=== PATIENT | female | born 1945 | race Hispanic/Latino ===

== ENCOUNTER 2020-04-05 17:53 | Emergency (ER) | payer SELFPAY ==
--- NOTE | 2020-04-05 18:47 | Emergency Department Report ---
HPI - General Chief Complaint: Fall Time Seen by Provider: 04/05/20 18:25 - HPI HPI: This is a 74-year-old female who presents to the emergency department, via EMS from home, after having a fall just prior to presentation. The patient had a recent multilevel lumbar fusion surgery done at [facility] at the end of February. Since that time the patient has been walking with a walker. She says that she was getting something to drink and as she tilted her head back to drink she started falling backwards. She thinks that she fell first onto her buttocks but then continued and fell onto her back. Unknown if she hit her head but denies any loss of consciousness. Since the fall the patient has been having left hip pain and increased pain to the low back where she had a recent spinal fusion surgery. Patient also has a history of a previous thyroidectomy. She also previously was diagnosed with hypertension but says that she no longer needed medication after weight loss. The patient took her oral Dilaudid at home around 4:30 PM for her back pain. Currently it is 7 out of 10 in intensity. She does have some history of neuropathy since the surgery but there has been no change in the neuropathy or any numbness or weakness since the fall. 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 "tremors". basal cell carcinoma in nares - Surgical History Past Surgical History?: Yes Additional Surgical History: dave hip sx. multiple lumbar sx. left shoulder replacement - Social History Smoking Status: Never Smoker Substance Use Type: Prescribed ED Review of Systems ROS: Stated complaint: FALL INJURY/LOWER BACK PAIN Other details as noted in HPI Comment: All other systems reviewed and negative Constitutional: denies: chills, fever Eyes: denies: eye pain, vision change ENT: denies: ear pain, throat pain Respiratory: denies: cough, shortness of breath Cardiovascular: denies: chest pain, palpitations Gastrointestinal: denies: abdominal pain, vomiting Genitourinary: denies: dysuria, discharge Musculoskeletal: back pain, arthralgia. denies: joint swelling Skin: denies: rash, lesions Neurological: denies: headache, weakness Physical Exam - Physical Exam Vital Signs: Vital Signs 04/05/20 04/05/20 04/05/20 17:59 18:14 18:15 Temperature 98.7 F Pulse Rate 51 L 49 L Respiratory 14 14 Rate Blood Pressure 131/54 O2 Sat by Pulse 100 95 95 Oximetry 04/05/20 04/05/20 18:30 18:35 Temperature Pulse Rate 57 L Respiratory 16 16 Rate Blood Pressure 131/54 O2 Sat by Pulse 96 96 Oximetry Physical Exam: GENERAL: The patient is well-developed well-nourished. HENT: Normocephalic. Atraumatic. Patient has moist mucous membranes. EYES: Extraocular motions are intact. NECK: Supple. Trachea is midline. There is both midline and bilateral paraspinal tenderness to palpation. CHEST/LUNGS: Clear to auscultation. There is no respiratory distress noted. HEART/CARDIOVASCULAR: Regular. There is no tachycardia. There is no murmur. ABDOMEN: Abdomen is soft, nontender. Patient has normal bowel sounds. SKIN: Skin is warm and dry. NEURO: The patient is awake, alert, and oriented. The patient is cooperative. Normal speech. MUSCULOSKELETAL: There is tenderness to palpation to the left hip but no obvious deformity. No laxity with compression of the pelvis. There is no limitation range of motion. BACK: There is both midline and bilateral paraspinal lumbar tenderness to palpation. ED Course Vital Signs 04/05/20 04/05/20 04/05/20 17:59 18:14 18:15 Temperature 98.7 F Pulse Rate 51 L 49 L Respiratory 14 14 Rate Blood Pressure 131/54 O2 Sat by Pulse 100 95 95 Oximetry 04/05/20 04/05/20 18:30 18:35 Temperature Pulse Rate 57 L Respiratory 16 16 Rate Blood Pressure 131/54 O2 Sat by Pulse 96 96 Oximetry ED Medical Decision Making - Radiology Data Radiology results: report reviewed LEFT HIP RADIOGRAPH, 3 VIEWS INDICATION / CLINICAL INFORMATION: fall, hip pain COMPARISON: None available. FINDINGS: BONES / JOINT(S): No acute displaced fracture or subluxation. Bilateral hip prostheses in normal anatomic alignment. No evidence of hardware loosening or failure. Postsurgical change in the visualized lower lumbar spine. SOFT TISSUES: No significant abnormality. ADDITIONAL FINDINGS: Multiple surgical clips in the pelvis. Cervical spine 5 views Indication: fall, neck pain Findings: There is no fracture, subluxation, or other acute radiographic abnormality of the cervical spine. There is multilevel discogenic degenerative change from C3 to T1. Prevertebral soft tissues are unremarkable. CT lumbar spine wo con INDICATION / CLINICAL INFORMATION: 74 years Female; fall, back pain, recent multilevel lumbar fusion. TECHNIQUE: Axial CT images of the lumbar spine were obtained after administration of intrathecal contrast. Sagit mickey and coronal reformatted images were produced. All CT scans at this location are performed using CT dose reduction for ALARA by means of automated exposure control. COMPARISON: None available. FINDINGS: POST-SURGICAL CHANGES: There is decompression and fusion at L4-5 and L5-S1 with intervertebral graft which appears solidly fused. Additionally, there is posterior instrumentation with bilateral pedicle screws at L4-S1. However, there is notable a retraction of the right pedicle screw at S1 along with the right which is situated within the more posterior soft tissues compared to the left. ALIGNMENT: There is no significant spondylolisthesis. VERTEBRAE: There is milder compression fracture involving the superior L1 vertebral body with linear lucencies anteriorly indicative of acute process at. There is approximately 20% loss of height. There is no significant bony retropulsion or spinal stenosis. The remaining lumbar vertebral bodies demonstrate appropriate height. INTERVERTEBRAL DISCS: The disc bulge and residual facet joint hypertrophy at the L3-4 level mildly deforms the ventral thecal sac. Additionally, there is mild to moderate foraminal narrowing, greater on the left. The degenerative the changes at L2-3 also mildly deform the thecal sac at. There is moderate left neural foraminal narrowing. The disc bulge slightly flattens the ventral thecal sac at L1-2. The facet joint hypertrophy contributes to mild foraminal narrowing bilaterally. PARASPINAL SOFT TISSUES: There are postsurgical changes noted along the left iliac vessels at. ADDITIONAL FINDINGS: None. IMPRESSION: 1. There is mild acute compression or fracture involving the superior L1 vertebral body as detailed above without significant bony retropulsion or spinal stenosis. 2. Status post decompression and fusion at L4-5 and L5-S1, also described above. There is component of retraction of the right pedicle screw at S1. - Medical Decision Making This patient presents to the emergency department with a complaint of some left hip pain and low back pain after a fall earlier in the afternoon. She may have hit her head on the couch all the way down but initially hit her buttocks and then her back. There was no loss of consciousness. She has no complaints of any headache, vision change, slurred speech, numbness or paresthesias, or any neurological deficits. The patient had kyphoplasty of L45 and L5-S1 at the end of February. An x-ray was done of the pelvis and left hip that did not show any fracture, dislocation, or any acute process. The patient later had some mild neck discomfort that is an exacerbation of a more chronic issue. An x-ray was done of the cervical spine that did not show any fracture, subluxation, or any acute process. Given the patient's fall, recent kyphoplasty, and low back pain, a CT scan of the lumbar spine without contrast was completed. It came back showing what appears to be an acute L1 anterior compression fracture with about a 20% loss of height. There is no retropulsion or signs of involvement of the spinal canal. All the imaging results were discussed with both the patient and her daughter. The patient's daughter happens to be an ER nurse here at this hospital. The patient already wears an TLSO brace. She is set up to start home health care tomorrow. The patient is supposed to start physical therapy soon. She has good outpatient follow-up with neurosurgery, who did her kyphoplasty, at [facility]. She is also currently in pain management and has medications at home to take. For all these reasons the patient will be discharged home, but she has been instructed to return to the closest emergency department with any worsening of her symptoms or with any acute distress. I am aware of the patient's bradycardia but this is baseline for this patient. Critical Care Time: No Critical care attestation.: If time is entered above; I have spent that time in minutes in the direct care of this critically ill patient, excluding procedure time. ED Disposition Clinical Impression: History of kyphoplasty Compression fracture of L1 lumbar vertebra Qualifiers: Encounter type: initial encounter Qualified Code(s): S32.010A - Wedge compression fracture of first lumbar vertebra, initial encounter for closed fracture Fall Qualifiers: Encounter type: initial encounter Qualified Code(s): W19.XXXA - Unspecified fall, initial encounter Disposition: TO HOME OR SELFCARE Is pt being admited?: No Condition: Stable Instructions: Lumbar Spine Fracture, Fall Prevention in the Home, Adult Additional Instructions: Please follow-up with your neurosurgeon regarding the L1 compression fracture and as a follow-up from your recent kyphoplasty. Return to the emergency department with any worsening of your symptoms, new or concerning symptoms not addressed during this current emergency department visit, or with any acute distress. Referrals: Neurosurgeon, Your [Other] - 2-3 Days Time of Disposition: 21:42
--- NOTE | 2020-04-05 19:25 | XRay Report ---
LEFT HIP RADIOGRAPH, 3 VIEWS INDICATION / CLINICAL INFORMATION: fall, hip pain COMPARISON: None available. FINDINGS: BONES / JOINT(S): No acute displaced fracture or subluxation. Bilateral hip prostheses in normal andrea omic alignment. No evidence of hardware loosening or failure. Postsurgical change in the visualized l ower lumbar spine. SOFT TISSUES: No significant abnormality. ADDITIONAL FINDINGS: Multiple surgical clips in the pelvis. Signer Name: Nidhi Mckenzie MD Signed: 04/05/2020 7:21 PM Workstation Name: [id number]
[2020-04-05] MEDS ORDERED: GABAPENTIN 300 MG CAP PO ONE (19:54)
[2020-04-05] MEDS ORDERED: tiZANidine TAB 4 MG TAB PO ONE (20:01)
--- NOTE | 2020-04-05 20:09 | Cat Scan Report ---
CT lumbar spine wo con INDICATION / CLINICAL INFORMATION: 74 years Female; fall, back pain, recent multilevel lumbar fusion. TECHNIQUE: Axial CT images of the lumbar spine were obtained after administration of intrathecal contrast. Sagi ttal and coronal reformatted images were produced. All CT scans at this location are performed using CT dose reduction for ALARA by means of automated exposure control. COMPARISON: None available. FINDINGS: POST-SURGICAL CHANGES: There is decompression and fusion at L4-5 and L5-S1 with intervertebral graft which appears solidly fused. Additionally, there is posterior instrumentation with bilateral pedicle screws at L4-S1. However, there is notable a retraction of the right pedicle screw at S1 along with t he right which is situated within the more posterior soft tissues compared to the left. ALIGNMENT: There is no significant spondylolisthesis. VERTEBRAE: There is milder compression fracture involving the superior L1 vertebral body with linear lucencies anteriorly indicative of acute process at. There is approximately 20% loss of height. There is no significant bony retropulsion or spinal stenosis. The remaining lumbar vertebral bodies demons trate appropriate height. INTERVERTEBRAL DISCS: The disc bulge and residual facet joint hypertrophy at the L3-4 level mildly de forms the ventral thecal sac. Additionally, there is mild to moderate foraminal narrowing, greater on the left. The degenerative the changes at L2-3 also mildly deform the thecal sac at. There is modera te left neural foraminal narrowing. The disc bulge slightly flattens the ventral thecal sac at L1-2. The facet joint hypertrophy contribu allan to mild foraminal narrowing bilaterally. PARASPINAL SOFT TISSUES: There are postsurgical changes noted along the left iliac vessels at. ADDITIONAL FINDINGS: None. IMPRESSION: 1. There is mild acute compression or fracture involving the superior L1 vertebral body as detailed a chano without significant bony retropulsion or spinal stenosis. 2. Status post decompression and fusion at L4-5 and L5-S1, also described above. There is component o f retraction of the right pedicle screw at S1. Signer Name: Darrell Morton MD Signed: 04/05/2020 8:05 PM Workstation Name: [id number]
--- NOTE | 2020-04-05 21:33 | XRay Report ---
Cervical spine 5 views Indication: fall, neck pain Findings: There is no fracture, subluxation, or other acute radiographic abnormality of the cervical spine. There is multilevel discogenic degenerative change from C3 to T1. Prevertebral soft tissues are unrem arkable. Signer Name: Jimi Barrios MD Signed: 04/05/2020 9:28 PM Workstation Name: [id number]
[2020-04-05 21:53] VITALS: BP 129/51
== END 2020-04-05 22:09 | disposition home or self-care (01) ==
LOC: ED 17:53
DX: S32.010A Wedge compression fracture of first lumbar vertebra, initial encounter for closed fracture (principal); I10 Essential (primary) hypertension; E03.9 Hypothyroidism, unspecified; Z88.8 Allergy status to other drugs, medicaments and biological substances; Z98.890 Other specified postprocedural states; W18.30XA Fall on same level, unspecified, initial encounter; Y93.89 Activity, other specified; Y92.099 Unspecified place in other non-institutional residence as the place of occurrence of the external cause; Y99.8 Other external cause status
CPT/HCPCS: 72040; 72131